=== PATIENT | female | born 1980 | race Caucasian/White ===

== ENCOUNTER 2017-03-03 14:38 | Emergency (ER) | payer OTHER ==
[2017-03-03 14:59] VITALS: BP 129/71; PULSE 77; RESP 18; TEMP 98.1
--- NOTE | 2017-03-03 16:40 | ED ---
General Adult HPI - General Chief complaint: Recheck/Abnormal Lab/Rx Stated complaint: rib pain Time Seen by Provider: 03/03/17 15:52 Source: patient, RN notes reviewed Mode of arrival: ambulatory Limitations: no limitations - History of Present Illness Initial comments: This is a 36 old female who presents with right rib pain. Patient states she hit the right side of her body on a counter 2 weeks ago. Patient states she did have a bruise to the right flank but this has improved. Patient states after 2 weeks she has noticed some lingering pain in the right side ribs. Patient states pain is worse with taking a deep breath. Patient denies any fever/chills or productive cough. Patient does admit to being a smoker. Patient denies that she hit her head and patient denies any loss of consciousness. Patient states she is not on any anticoagulants. Patient denies any recent fever, chills, shortness breath, chest pain, abdominal pain, nausea/ vomiting/diarrhea, back pain, numbness, tingling, hematuria, headache, or visual changes, or any other complaints. - Related Data Home Medications Medication Instructions Recorded Confirmed FLUoxetine HCL [PROzac] 1 tab PO DAILY 06/15/15 10/20/16 HYDROcodone/APAP 10-325MG [[place] 1 tab PO QID PRN 06/15/15 10/20/16 10-325] LORazepam [Ativan] 1 tab PO DAILY 06/15/15 10/20/16 Methylphenidate HCl [Ritalin] 1 tab PO BID 06/15/15 10/20/16 lamoTRIgine [LaMICtal] 1 tab PO DAILY 06/15/15 10/20/16 lamoTRIgine [LaMICtal] 200 mg PO HS 10/20/16 10/20/16 Allergies Allergy/AdvReac Type Severity Reaction Status Date / Time ibuprofen Allergy Anaphylaxis Verified 03/03/17 14:59 Review of Systems ROS Statement: Those systems with pertinent positive or pertinent negative responses have been documented in the HPI. ROS Other: All systems not noted in ROS Statement are negative. Past Medical History Past Medical History: Asthma History of Any Multi-Drug Resistant Organisms: None Reported Past Surgical History: Section, Tubal Ligation Past Psychological History: ADD/ADHD, Anxiety, Bipolar, Depression Smoking Status: Current every day smoker Past Alcohol Use History: None Reported Past Drug Use History: Marijuana General Exam - General Exam Comments Initial Comments: General: The patient is awake and alert, in no distress, and does not appear acutely ill. Neck: The neck is supple, there is no tenderness or JVD. Cardiovascular: There is a regular rate and rhythm. No murmur, rub or gallop is appreciated. Respiratory: Lungs are clear to auscultation, respirations are non-labored, breath sounds are equal. No wheezes, stridor, rales, or rhonchi. Musculoskeletal: There is tenderness to palpation to the anterolateral right side ribs. There is no bruising, swelling or ecchymosis. Patient has full range of motion, strength 5/5 and Sensation intact. Radial pulses 2+ bilaterally. Neurological: A&O x 3. CN II-XII intact, There are no obvious motor or sensory deficits. Coordination appears grossly intact. Speech is normal. Skin: Skin is warm and dry and no rashes or lesions are noted. Psychiatric: Normal mood and affect. Limitations: no limitations Course Vital Signs 03/03/17 14:56 Temperature 98.1 F Pulse Rate 77 Respiratory 18 Rate Blood Pressure 129/71 O2 Sat by Pulse 98 Oximetry Medical Decision Making - Medical Decision Making This is a 32 for female presents with right-sided rib pain 2 weeks. On physical exam patient is neurologically intact, well appearing and afebrile in the EC. There is tenderness to palpation to the anterolateral right side ribs. There is no bruising, swelling or ecchymosis. Patient has full range of motion , strength 5/5 and Sensation intact. Radial pulses 2+ bilaterally. X-rays of the right side ribs and a chest x-ray is done and reviewed showing: #1 no acute cardiopulmonary process. #2 no acute displaced right-sided rib fractures are seen. Reported by Dr. Knowles. I discussed rib contusion. Discussed that pain can persist for 4-6 weeks. I discussed the importance of taking deep breaths to prevent pneumonia. I discussed return parameters. Discussed Tylenol for pain. I discussed tramadol for breakthrough pain. Patient refused prescription for tramadol stating she has a pain contract and takes [place] at home. I discussed heating pads. Discussed that patient should follow up with PCP in one to 2 days or return to the EC for any worsening symptoms or for any further concerns. Patient was receptive to this plan and patient will be discharged home. Disposition Clinical Impression: Rib contusion Disposition: HOME SELF-CARE Condition: Good Instructions: Rib Contusion (ED) Additional Instructions: Please use Tylenol for pain. May use warm heating pads or ice to the area. Please continue to take deep breath to prevent any pneumonia. If you develop fever, productive cough or trouble breathing please return to the EC. Please note that pain can persist for 4-6 weeks. Please use medication as discussed. Please follow-up with family doctor in the next 2 days. Please return to emergency room if the symptoms increase or worsen or for any other concerns. Referrals: Vonda Arndt MD [Primary Care Provider] - 1-2 days Time of Disposition: 17:03
--- NOTE | 2017-03-03 16:54 | XR ---
EXAMINATION TYPE: XR ribs RT w pa chest x-ray DATE OF EXAM: 03/03/2017 4:48 PM CLINICAL HISTORY: Pain and bruising and swelling after right-sided injury. TECHNIQUE: Single frontal view of the chest is obtained. A frontal and oblique images of the right-si ded ribs are acquired. COMPARISON: Prior chest x-ray November 03, 2012. FINDINGS: There is no focal air space opacity, pleural effusion, or pneumothorax seen. The cardiac silhouette size is within normal limits. The osseous structures are intact. Dedicated images of the right-sided ribs show no acute displaced right-sided fracture. Overlying soft tissue is unremarkable. IMPRESSION: 1. No acute cardiopulmonary process. 2. No acute displaced right-sided rib fractures are seen.
== END 2017-03-03 17:00 | disposition home or self-care (01) ==
LOC: EC 14:38
DX: S20.211A Contusion of right front wall of thorax, initial encounter (principal); F31.9 Bipolar disorder, unspecified; F90.9 Attention-deficit hyperactivity disorder, unspecified type; F41.9 Anxiety disorder, unspecified; F17.200 Nicotine dependence, unspecified, uncomplicated; Z79.899 Other long term (current) drug therapy; Z88.6 Allergy status to analgesic agent; W18.09XA Striking against other object with subsequent fall, initial encounter
CPT/HCPCS: 99283

== ENCOUNTER 2020-06-19 17:09 | Emergency (ER) | payer OTHER ==
[2020-06-19 17:24] VITALS: BP 96/63; PULSE 104; RESP 18; TEMP 98.6
[2020-06-19] MEDS ORDERED: TOPICAL SKIN ADHESIVE 1 EACH AMP TOPICAL ONE (18:41)
--- NOTE | 2020-06-19 18:47 | ED ---
Wound/Laceration HPI - General Source: patient Mode of arrival: ambulatory Limitations: no limitations <Cecile Head - Last Filed: 06/20/20 07:13> <Elvira Abad - Last Filed: 06/24/20 08:36> - General Chief Complaint: Wound/Laceration Stated Complaint: Left forearm lac Time Seen by Provider: 06/19/20 18:25 - History of Present Illness Initial Comments: 40yo female presenting today for cc of left forearm laceration just prior to arrival. Patient states that she was opening a box with a knife when it slipped cutting her forearm. She states she covered it and came to ER because she felt like she needed repair. States tetanus is UTD. Denies any limitation in ROM of the distal hand/forearm, denies numbness tingling or loss of sensation of extremity. Admits to pain at site of laceration, burning in nature. Patient has no additional complaints or endorsed areas of injury. (Cecile Head) - Related Data Home Medications Medication Instructions Recorded Confirmed FLUoxetine HCL [PROzac] 1 tab PO DAILY 06/15/15 10/20/16 HYDROcodone/APAP 10-325MG [Smock 1 tab PO QID PRN 06/15/15 10/20/16 10-325] LORazepam [Ativan] 1 tab PO DAILY 06/15/15 10/20/16 Methylphenidate HCl [Ritalin] 1 tab PO BID 06/15/15 10/20/16 lamoTRIgine [LaMICtal] 1 tab PO DAILY 06/15/15 10/20/16 lamoTRIgine [LaMICtal] 200 mg PO HS 10/20/16 10/20/16 Allergies Allergy/AdvReac Type Severity Reaction Status Date / Time ibuprofen Allergy Anaphylaxis Verified 06/19/20 17:23 Review of Systems ROS Other: All systems not noted in ROS Statement are negative. <Cecile Head - Last Filed: 06/20/20 07:13> ROS Other: All systems not noted in ROS Statement are negative. <Elvira Abad - Last Filed: 06/24/20 08:36> ROS Statement: Those systems with pertinent positive or pertinent negative responses have been documented in the HPI. Past Medical History Past Medical History: Asthma History of Any Multi-Drug Resistant Organisms: None Reported Past Surgical History: Section, Tubal Ligation Past Psychological History: ADD/ADHD, Anxiety, Bipolar, Depression Smoking Status: Current every day smoker Past Alcohol Use History: None Reported, Occasional Past Drug Use History: Marijuana <Cecile Head - Last Filed: 06/20/20 07:13> General Exam Limitations: no limitations <Cecile Head - Last Filed: 06/20/20 07:13> - General Exam Comments Initial Comments: General: The patient is awake and alert, in no distress, and does not appear acutely ill. Eye: Pupils are equal, round and reactive to light, extra-ocular movements are intact. No nystagmus. There is normal conjunctiva bilaterally. No signs of icterus. Musculoskeletal: Normal ROM, no tenderness. Strength 5/5. Sensation intact. Radial pulses equal bilaterally 2+. Neurological: A&O x 3. CN II-XII intact grossly, There are no obvious motor or sensory deficits. Coordination appears grossly intact. Speech is normal. Skin: Skin is warm and dry and no rashes. 3cm forearm laceration, superficial- no fb no bleeding. Psychiatric: Cooperative, appropriate mood & affect, normal judgment. (Cecile Head) Course Vital Signs 06/19/20 17:21 Temperature 98.6 F Pulse Rate 104 H Respiratory 18 Rate Blood Pressure 96/63 O2 Sat by Pulse 98 Oximetry Medical Decision Making <Cecile Head - Last Filed: 06/20/20 07:13> <Elvira Abad - Last Filed: 06/24/20 08:36> - Medical Decision Making 40-year-old feel presenting for left forearm laceration not intentional denies suicidal homicidal ideation. Patient has MICROMEND placed, 2 LARGE. Re-enforced adhesive with exofin. Wound edges approximated well. Tdap UTD in last 5 years. Patient has no additional complaints. Discharged appearing well after disc ussing the appropriate care and monitoring of laceration. Case discussed with Dr. Abad (Cecile Head) I was available for consultation in the emergency department. The history and physical exam were done by the midlevel provider. I was consulted for this patients care. I reviewed the case with the midlevel provider and based on their presentation of the patient, I agree with the assessment, medical decision making and plan of care as documented. Chart was dictated using [employer] dictation software. Attempts were made to correct any dictation errors however some typographical errors may persist. Patient was seen during the [facility] state of emergency due to the Covid-19 pandemic. (Elvira Abad) Disposition Is patient prescribed a controlled substance at d/c from ED?: No Time of Disposition: 18:47 <Cecile Head - Last Filed: 06/20/20 07:13> <Elvira Abad - Last Filed: 06/24/20 08:36> Clinical Impression: Laceration of left forearm Disposition: HOME SELF-CARE Condition: Good Instructions (If sedation given, give patient instructions): Laceration (ED), Skin Adhesive Care (ED) Additional Instructions: Please use medication as discussed. Please follow-up with family doctor in the next 2 days for wound check, removal micromend in 7-10 days. Please return to emergency room if the symptoms increase or worsen or for any other concerns. Referrals: Emeli Chapa MD [Primary Care Provider] - 1-2 days
== END 2020-06-19 19:14 | disposition home or self-care (01) ==
LOC: EC 17:09
DX: S51.812A Laceration without foreign body of left forearm, initial encounter (principal); F90.9 Attention-deficit hyperactivity disorder, unspecified type; F41.9 Anxiety disorder, unspecified; F32.9 Major depressive disorder, single episode, unspecified; F17.200 Nicotine dependence, unspecified, uncomplicated; Z79.899 Other long term (current) drug therapy; Z88.6 Allergy status to analgesic agent; W26.0XXA Contact with knife, initial encounter; Y93.89 Activity, other specified
CPT/HCPCS: 12002; 99282